=== PATIENT | female | born 1960 | race Caucasian/White ===

== ENCOUNTER 2017-11-07 06:14 | Emergency (ER) | payer BC | END 2017-11-07 08:48 | disposition home or self-care (01) | LOC: FTE 06:14 | DX: M79.602 Pain in left arm (principal); I10 Essential (primary) hypertension; J45.909 Unspecified asthma, uncomplicated; F17.210 Nicotine dependence, cigarettes, uncomplicated; Z79.82 Long term (current) use of aspirin | CPT/HCPCS: 73030; 73060; 99283-25 ==

== ENCOUNTER 2018-08-11 01:47 | Emergency (ER) | payer BC ==
[2018-08-11] MEDS: METHYLPREDNISOLONE 125 MG INJ IM (02:35)
[2018-08-11] MEDS: ALBUTEROL 0.083% (NEB) 2.5 MG/3 ML AMP NEB (02:52)
[2018-08-11] MEDS: IPRATROPIUM (NEB) 0.5 MG/2.5 ML AMP NEB (02:52)
== END 2018-08-11 03:38 | disposition home or self-care (01) ==
LOC: FTE 01:47
DX: J20.9 Acute bronchitis, unspecified (principal); J45.909 Unspecified asthma, uncomplicated; I10 Essential (primary) hypertension; F17.210 Nicotine dependence, cigarettes, uncomplicated; Z79.82 Long term (current) use of aspirin
CPT/HCPCS: 71045; 94664; 96372; 99284-25